=== PATIENT | female | born 1980 | race African-American/Black ===

== ENCOUNTER → 2018-07-20 | Outpatient (CLI) | payer BC ==
--- NOTE | 2018-07-20 10:44 | RAD ---
Pelvic ultrasound dated 07/20/2018. No comparison available. Clinical data indication: Pelvic pain.. FINDINGS: Transabdominal and transvaginal imaging performed. Uterus is surgically absent. No abnormality at the vaginal cuff. Neither ovary is clearly identified. There is no apparent adnexal mass or free fluid. Urinary bladder unremarkable. IMPRESSION: 1. Status post hysterectomy. 2. Neither ovary is clearly identified. There is no apparent adnexal mass or free fluid. Electronically signed by: Eugenio Olivarez MD (07/20/2018 10:39 AM) [id number]
== END | disposition home or self-care (01) ==
LOC: US 08:40
PROVIDERS: ATTEND Physician Assistant
DX: R10.2 Pelvic and perineal pain (principal); N94.10 Unspecified dyspareunia
CPT/HCPCS: 76830; 76856